=== PATIENT | male | born 1960 | race Caucasian/White ===

== ENCOUNTER → 2017-08-06 | Outpatient (CLI) | payer OTHER ==
--- NOTE | 2017-08-06 18:21 | Diagnostic Imaging Report ---
INDICATION: Left ankle swelling. AP, oblique, and lateral views of the left ankle are obtained. FINDINGS: No fracture or acute bony abnormality is seen. IMPRESSION: Negative left ankle. Dictated by: Dictated on workstation # [id number]
== END ==
LOC: RAD 17:51
PROVIDERS: ATTEND Nurse Practitioner Family
DX: M25.472 Effusion, left ankle (principal)
CPT/HCPCS: 73610

== ENCOUNTER → 2021-01-13 | Outpatient (CLI) | payer OTHER ==
--- NOTE | 2021-01-13 09:54 | Diagnostic Imaging Report ---
INDICATION: Back pain FINDINGS: Lumbar vertebral statures are normal. The alignment is anatomic. The disc spaces are well-preserved. There is mild endplate osteophytes directed anteriorly. There is mild lower lumbar facet arthrosis greatest at the L5-S1 level. No fracture or bony destructive process. No acute finding. IMPRESSION: Mild degenerative changes aligned anatomically with no acute appearing abnormality. Dictated by: Dictated on workstation # [id number]
== END ==
LOC: RAD 08:51
PROVIDERS: ATTEND Nurse Practitioner Family
DX: M47.816 Spondylosis without myelopathy or radiculopathy, lumbar region (principal)
CPT/HCPCS: 72100

== ENCOUNTER → 2021-11-30 | Outpatient (CLI) | payer OTHER ==
--- NOTE | 2021-11-30 15:53 | Diagnostic Imaging Report ---
INDICATION: Pain of the right elbow with recent exacerbation. COMPARISON: None. FINDINGS: 3 views of the right elbow show no fractures, dislocations, or other acute bony abnormalities identified. Joint spaces are well maintained throughout. The soft tissues appear unremarkable. No radiopaque foreign bodies are identified. IMPRESSION: No acute fractures or dislocations of the right elbow. Dictated by: Dictated on workstation # [id number]
== END ==
LOC: RAD 15:21
PROVIDERS: ATTEND Nurse Practitioner Family
DX: M25.521 Pain in right elbow (principal)
CPT/HCPCS: 73080

== ENCOUNTER → 2022-02-06 | Outpatient (CLI) | payer OTHER ==
--- NOTE | 2022-02-06 15:23 | Diagnostic Imaging Report ---
INDICATION: Chest pain. Dizziness. Fatigue. COMPARISON: None. FINDINGS: Frontal and lateral radiographic views of the chest were obtained and show normal cardiac silhouette and pulmonary vasculature. Lungs appear slightly hyperinflated. There is suggestion of 15 x 9 mm nodular opacity of the left upper lung. Lungs are otherwise clear. There is no large effusion or pneumothorax. Osseous structures show no gross acute abnormalities. IMPRESSION: 1. No evidence of failure or focal infiltrate. 2. Findings suspicious for underlying obstructive pulmonary disease. Clinical correlation is advised. 3. Nodular opacity of the left upper lung field. Correlation with CT chest is recommended. Dictated by: Dictated on workstation # [id number]
[2022-02-06 15:35] LABS: HEMATOCRIT 43 % (40-54); HEMOGLOBIN 14.4 g/dL (13.3-17.7); MEAN CORPUSCULAR HEMOGLOBIN 29 pg (25-34); MEAN CORPUSCULAR HGB CONC 33 g/dL (32-36); MEAN CORPUSCULAR VOLUME 87 fL (80-99); MEAN PLATELET VOLUME 9.6 fL (9.0-12.2); PLATELET COUNT 256 10^3/uL (130-400); WHITE BLOOD COUNT 5.6 10^3/uL (4.3-11.0)
[2022-02-06 15:51] LABS: ALBUMIN 4.3 GM/DL (3.2-4.5); CHLORIDE 106 MMOL/L (98-107); POTASSIUM 4.3 MMOL/L (3.6-5.0); SODIUM 141 MMOL/L (135-145)
[2022-02-06 15:52] LABS: CALCIUM 9.3 MG/DL (8.5-10.1)
[2022-02-06 15:53] LABS: GLUCOSE 89 MG/DL (70-105); TOTAL PROTEIN 7.1 GM/DL (6.4-8.2)
[2022-02-06 15:54] LABS: CARBON DIOXIDE 24 MMOL/L (21-32)
[2022-02-06 15:55] LABS: BILIRUBIN,TOTAL 0.7 MG/DL (0.1-1.0)
[2022-02-06 15:57] LABS: ALKALINE PHOSPHATASE 65 U/L (40-136); CREATININE SERUM 1.17 MG/DL (0.60-1.30); GFR ESTIMATED 70
[2022-02-06 15:58] LABS: BUN/CREATININE RATIO 11
[2022-02-06 16:00] LABS: ALANINE AMINOTRANSFERASE 20 U/L (0-55); CREATINE KINASE 159 U/L (30-200)
== END ==
LOC: CARD 14:53
PROVIDERS: ATTEND Nurse Practitioner Family
DX: R91.8 Other nonspecific abnormal finding of lung field (principal); R07.9 Chest pain, unspecified; R42 Dizziness and giddiness; R53.83 Other fatigue; Z20.822 Contact with and (suspected) exposure to COVID-19
CPT/HCPCS: 36415; 71046; 80053; 82550; 84484; 85027; 85379; 93005

== ENCOUNTER → 2022-02-13 | Outpatient (CLI) | payer OTHER ==
--- NOTE | 2022-02-13 18:08 | Diagnostic Imaging Report ---
EXAMINATION: CT chest without contrast. TECHNIQUE: Multiple contiguous axial images were obtained through the chest without the use of intravenous contrast. All CT scans use one or more of the following dose optimizing techniques: automated exposure control, MA and/or KvP adjustment based on patient size and exam type or iterative reconstruction. HISTORY: Abnormal chest radiograph, chest pain. COMPARISON: None available. FINDINGS: There is no edema or pneumonia. No pleural effusion. No pneumothorax. There are mild centrilobular groundglass nodules in the right lower lobe. A radiographic abnormality is a calcified pleural plaque in the left upper zone. There are right-sided calcified pleural plaques, as well. There is no axillary or supraclavicular lymphadenopathy. There is no mediastinal lymphadenopathy. Heart size is normal. There are mild coronary artery calcifications. No pericardial effusion. Aorta is normal in caliber. Limited views of the upper abdomen are unremarkable. There are no suspicious osseus lesions. IMPRESSION: 1. Bilateral calcified pleural plaques responsible for the radiographic abnormality suggestive of a prior asbestos exposure. 2. Mild centrilobular groundglass nodules in the right lower lobe in keeping with a mild endobronchial infection or aspiration. Dictated by: Dictated on workstation # [id number]
== END ==
LOC: RAD 17:40
PROVIDERS: ATTEND Nurse Practitioner Family
DX: J92.9 Pleural plaque without asbestos (principal); R91.8 Other nonspecific abnormal finding of lung field
CPT/HCPCS: 71250

== ENCOUNTER → 2022-06-18 | Outpatient (CLI) | payer OTHER ==
--- NOTE | 2022-06-18 19:04 | Diagnostic Imaging Report ---
INDICATION: Neck pain. FINDINGS: There are degenerative changes to the discs, endplates and facets most severe at the C5-C6 level with some posterior osteophytosis. There is mid to lower cervical sclerotic facet arthrosis also degenerative. No cervical fracture or bony destruction. IMPRESSION: Spondylosis most severe at C5-C6. Multilevel degenerative facet arthrosis. No acute appearing abnormality. Dictated by: Dictated on workstation # [id number]
== END ==
LOC: RAD 13:22
PROVIDERS: ATTEND Nurse Practitioner Family
DX: M47.812 Spondylosis without myelopathy or radiculopathy, cervical region (principal)
CPT/HCPCS: 72040

== ENCOUNTER 2022-10-22 09:55 | Emergency (ER) | payer OTHER ==
[~2022-10-22] VITALS: Ht 182.8 cm; Wt 69.8 kg
--- NOTE | 2022-10-22 10:07 | ED Cardiac General ---
History of Present Illness General Stated Complaint: ABNORMAL EKG Source: patient Exam Limitations: no limitations History of Present Illness Date Seen by Provider: Oct 22, 2022 Time Seen by Provider: 10:06 Initial Comments 61-year-old male presents to the emergency department today from the [facility] clinic for reported abnormal EKG. He states he has had body aches for the last 2 or 3 days. He has a chronic neck issue then has been diagnosed with bulging disks. He actually has an MRI on Saturday at [place] for further evaluation of this. He states recently he began having tingling in his bilateral fingers. He also endorses some subjective weakness in his right arm over the last month or so since all of his neck issues are started. He denies any fevers or chills. No chest pain or shortness of breath. He has had a mild nonproductive cough. He had an EKG at the [facility] clinic which they reported as abnormal. He also had a negative COVID and flu test there. All other systems reviewed and negative except documented per HPI. Voice recognition software was used to help create this chart Allergies and Home Medications Allergies Coded Allergies: No Known Drug Allergies (Unverified , 10/22/22) Patient Home Medication List Home Medication List Reviewed: Yes Review of Systems Review of Systems Constitutional: see HPI Past Jlegfaw-Dgssou-Fsllnr Hx Patient Social History Tobacco Use?: No Use of E-Cig and/or Vaping dev: No Substance use?: No Alcohol Use?: No Family Medical History Reviewed Nursing Family Hx No Pertinent Family Hx Physical Exam Vital Signs Capillary Refill : Height, Weight, BMI Height: '" Weight: lbs. oz. kg; BMI Method: General Appearance: No Apparent Distress, WD/WN HEENT: Normal ENT Inspection, Pharynx Normal Neck: Normal Inspection, Supple Respiratory: Chest Non Tender, Lungs Clear, Normal Breath Sounds, No Accessory Muscle Use, No Respiratory Distress Cardiovascular: Regular Rate, Rhythm, No Murmur, Normal Peripheral Pulses Gastrointestinal: Normal Bowel Sounds, No Organomegaly, Non Tender, Soft Extremity: Normal Capillary Refill, Normal Inspection, Normal Range of Motion, Non Tender, No Calf Tenderness, No Pedal Edema Neurologic/Psychiatric: Alert, Oriented x3 Skin: Normal Color, Warm/Dry Progress/Results/Core Measures Comment I reviewed [facility] EKG that shows normal sinus rhythm with a rate of 60. Normal intervals. Normal axis. Slight early repolarization abnormality in leads II and aVF. No ST or T wave abnormalities otherwise. No ectopy. No STEMI. Her EKG here shows sinus rhythm of 60 bpm. Normal intervals. Normal axis. No ST or T wave abnormality. No ectopy. No STEMI. Departure Communication (Admissions) Patient is hemodynamically stable. He is not having any cardiac symptoms at home. His EKG is completely normal on my review. His main concern is body aches that has been having for the last 2 or 3 days. He has normal vital signs and a normal exam. He is nontoxic and afebrile. Is likely the start of a viral syndrome. COVID and flu testing were negative in the clinic. Will be discharged home in stable condition with supportive care and close follow-up. Impression Primary Impression: Body aches Disposition: HOME, SELF-CARE Condition: Stable Departure-Patient Inst. Referrals: TREVIN CONSTANTINO MD (PCP/Family) Primary Care Physician Add. Discharge Instructions: You are seen in the emergency department today for body aches and reported abnormal EKG. As discussed EKG is normal on my interpretation. As far as the body aches ago, your COVID and flu testing were negative at [facility]. I think you may be starting to come down with a viral illness. This may include nausea, diarrhea or vomiting. This may also include upper respiratory type symptoms such as cough, chills and fevers. Treatment would be conservative with increased fluids amounts of rest. Return to the emergency department for any severe concerns or if you develop any chest pain or your symptoms change in any way concerning to you. Follow with your primary doctor for any nonemergent needs MIGUEL SHETH DO Oct 22, 2022 10:06
[2022-10-22 10:30] VITALS: BP 127/81
== END 2022-10-22 10:30 | disposition home or self-care (01) ==
LOC: EDUNIT# 09:55 → ER 09:58
DX: M79.10 Myalgia, unspecified site (principal)
CPT/HCPCS: 93005; 99285

== ENCOUNTER 2023-01-03 03:31 | Emergency (ER) | payer OTHER ==
[~2023-01-03] VITALS: Ht 182.9 cm; Wt 68.0 kg
--- NOTE | 2023-01-03 03:46 | ED Lower Extremity ---
General Chief Complaint: Lower Extremity Stated Complaint: RIGHT LEG PAIN Source: patient (SON MORRISON DO) History of Present Illness Date Seen by Provider: Jan 03, 2023 Time Seen by Provider: 03:38 Initial Comments PT ARRIVES VIA POV FROM HOME WITH PT IS WALKING WITH A WALKER ( STATES HE HAS NEVER HAD TO USE ONE IN HIS LIFE--WAS HIS 'S FROM KNEE REPLACEMENT SURGERY) PT STATES SINCE Saturday01/01/23, HE HAS BEEN HAVING PAIN IN HIS ENTIRE RIGHT LEG--STARTING AT HIS LOW BACK--MORE ON THE RIGHT SIDE, AND DOWN HIS RIGHT LEG FROM HIP TO FOOT. NO NUMBNESS, BUT HAS OCCASIONAL SLIGHT TINGLING TO LATERAL ASPECT OF RIGHT THIGH HURTS TO MOVE IN ANY DIRECTION OR BEND OVER OR TO RAISE HIS RIGHT LEG. NO SWELLING OR DISCOLORATION OR TEMPERATURE CHANGE TO HIS LEG NO INJURY OR UNUSUAL ACTIVITY. PT WORKS AT A [employer]. NO HEAVY LIFTING OR UNUSUAL ACTIVITY. DOES TO ALOT OF BENDING OVER AND TWISTING, ETC. PT WORKED ALL DAY ON MONDAY 01/01 AND TUESDAY 01/02 HE HAS NOT HAD THIS PROBLEM BEFORE NO PROBLEMS URINATING OR WITH BM'S URINE IS NORMAL COLOR HE WENT TO URGENT CARE AT 1800 FOR THIS PROBLEM. HE STATES THEY DID AN EKG, NO OTHER TESTS WERE DONE, AND WAS TOLD TO TAKE TYLENOL AND IBUPROFEN HE HAS TAKE ONE DOSE OF IBUPROFEN AT 0200 WITHOUT RELIEF. STATES HIS ONLY MEDICAL PROBLEM IS HIGH CHOLESTEROL HE DENIES SMOKING OR VAPING, OCCASIONAL ETOH USE, AND DENIES DRUG USE. HIS ONLY SURGERY IS APPENDECTOMY PCP; DR. CASON (SON MORRISON ) Allergies and Home Medications Allergies Coded Allergies: No Known Drug Allergies (Unverified , 10/22/22) Patient Home Medication List Home Medication List Reviewed: Yes (SON MORRISON ) Cyclobenzaprine HCl (Cyclobenzaprine HCl) 10 Mg Tablet, 10 MG PO Q8H PRN for SPASMS Prescribed by: LUBNA SULTANA on 01/03/23652 Naproxen (Naprosyn) 500 Mg Tablet, 500 MG PO BID Prescribed by: LUBNA SULTANA on 01/03/23652 Review of Systems Constitutional: no symptoms reported Respiratory: no symptoms reported; No short of breath Cardiovascular: no symptoms reported; No chest pain, No edema Gastrointestinal: no symptoms reported Genitourinary: no symptoms reported Musculoskeletal: see HPI Skin: no symptoms reported Psychiatric/Neurological: See HPI (SON MORRISON Cindy SCHILLING) Past Txxgeyd-Jilplr-Rhrpay Hx Patient Social History Tobacco Use?: No Substance use?: No Alcohol Use?: Yes Alcohol Frequency: Once in a while (SON MORRISON Cindy SCHILLING) Past Medical History Surgeries: Yes Appendectomy Respiratory: No Cardiac: Yes High Cholesterol Neurological: No Genitourinary: No Gastrointestinal: No Musculoskeletal: No Endocrine: No HEENT: No Cancer: No Psychosocial: No Integumentary: No Blood Disorders: No (SON MORRISON Cindy SCHILLING) Family Medical History No Pertinent Family Hx (SON MORRISON ) Physical Exam Vital Signs Vital Signs - First Documented 01/03/23 03:37 Temp 36.9 Pulse 59 Resp 18 B/P (MAP) 118/81 (93) Pulse Ox 98 O2 Delivery Room Air (LUBNA SULTANA MD) Vital Signs Capillary Refill : (SON MORRISON Cindy SCHILLING) Height, Weight, BMI Height: '" Weight: lbs. oz. kg; 20.00 BMI Method: General Appearance: WD/WN, no apparent distress, thin Neck: normal inspection Cardiovascular: normal peripheral pulses, regular rate, rhythm, no murmur Respiratory: normal breath sounds Gastrointestinal: non tender Back: other (MID AND LOWER LUMBAR TENDERNESS, WITH MARKED TENDERNESS OVER RIGHT SI JOINT--DRAMATICALLY REPRODUCES PAIN . ) Hips: right hip other (SLIGHT TENDERNESS TO RIGHT POSTERIOR HIP AREA, PAIN WITH MOVEMENT OF HIP. ) Legs: right leg non-tender, right leg other (PAIN WITH MINIMAL RIGHT LEG RAISING) Knees: right knee non-tender Ankles: right ankle non-tender Feet: right foot non-tender Neurologic/Tendon: normal sensation, normal motor functions, normal tendon functions, other (DTR'S +2/4 BILATERALLY. PEDAL PULSES +2/4 BILATERALLY; + STRAIGHT LEG RAISING AT LESS THAN 30 DEGREES ON THE RIGHT, WITH PT IS SEMI- RECLINED POSITION. 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 (SON MORRISON DO) Progress/Results/Core Measures Results/Orders Lab Results Laboratory Tests Test 01/03/23 03:43 Range/Units White Blood Count 5.7 4.3-11.0 10^3/uL Red Blood Count 4.79 4.30-5.52 10^6/uL Hemoglobin 14.2 13.3-17.7 g/dL Hematocrit 43 40-54 % Mean Corpuscular Volume 89 80-99 fL Mean Corpuscular Hemoglobin 30 25-34 pg Mean Corpuscular Hemoglobin Concent 33 32-36 g/dL Red Cell Distribution Width 12.3 10.0-14.5 % Platelet Count 248 130-400 10^3/uL Mean Platelet Volume 9.4 9.0-12.2 fL Immature Granulocyte % (Auto) 0 % Neutrophils (%) (Auto) 57 42-75 % Lymphocytes (%) (Auto) 29 12-44 % Monocytes (%) (Auto) 10 0-12 % Eosinophils (%) (Auto) 3 0-10 % Basophils (%) (Auto) 1 0-10 % Neutrophils # (Auto) 3.2 1.8-7.8 10^3/uL Lymphocytes # (Auto) 1.7 1.0-4.0 10^3/uL Monocytes # (Auto) 0.6 0.0-1.0 10^3/uL Eosinophils # (Auto) 0.2 0.0-0.3 10^3/uL Basophils # (Auto) 0.1 0.0-0.1 10^3/uL Immature Granulocyte # (Auto) 0.0 0.0-0.1 10^3/uL Erythrocyte Sedimentation Rate 5 0-30 MM/HR Prothrombin Time 12.8 12.2-14.7 SEC INR Comment 0.9 0.8-1.4 Activated Partial Thromboplast Time 35 24-35 SEC D-Dimer < 0.27 0.00-0.49 UG/ML Sodium Level 141 135-145 MMOL/L Potassium Level 4.1 3.6-5.0 MMOL/L Chloride Level 107 98-107 MMOL/L Carbon Dioxide Level 25 21-32 MMOL/L Anion Gap 9 5-14 MMOL/L Blood Urea Nitrogen 16 7-18 MG/DL Creatinine 1.13 0.60-1.30 MG/DL Estimat Glomerular Filtration Rate 73 BUN/Creatinine Ratio 14 Glucose Level 100 70-105 MG/DL Calcium Level 9.1 8.5-10.1 MG/DL Corrected Calcium 9.1 8.5-10.1 MG/DL Magnesium Level 1.9 1.6-2.4 MG/DL Total Bilirubin 0.5 0.1-1.0 MG/DL Aspartate Amino Transf (AST/SGOT) 24 5-34 U/L Alanine Aminotransferase (ALT/SGPT) 18 0-55 U/L Alkaline Phosphatase 64 40-136 U/L C-Reactive Protein High Sensitivity 0.04 0.00-0.50 MG/DL B-Type Natriuretic Peptide 63.1 <100.0 PG/ML Total Protein 6.5 6.4-8.2 GM/DL Albumin 4.0 3.2-4.5 GM/DL (LUBNA SULTANA MD) Medications Given in ED Current Medications Medications Dose Ordered Sig/Dimple Route Start Time Stop Time Status Last Admin Dose Admin Ketorolac Tromethamine 60 mg ONCE ONCE IM 01/03/23 04:00 01/03/23 04:01 DC 01/03/23 04:56 60 MG Orphenadrine Citrate 60 mg ONCE ONCE IM 01/03/23 04:00 01/03/23 04:01 DC 01/03/23 04:56 60 MG (LUBNA SULTANA MD) Vital Signs/I&O 01/03/23 03:37 Temp 36.9 Pulse 59 Resp 18 B/P (MAP) 118/81 (93) Pulse Ox 98 O2 Delivery Room Air (LUBNA SULTANA MD) Progress Progress Note : Progress Note GIVEN: -TORADOL -NORFLEX LABS INCLUDING CBC, CMP, BNP, D-DIMER, SED RATE, CRP PT/PTT ORDERED AND ALL ARE NORMAL. CT OF LUMBAR SPINE AND RIGHT HIP AND PELVIS ORDERED MARKED DELAY IN OBTAINING CT RESULTS. 0543--CALLED AUTOMOTIVE TECHNICIAN INSTRUCTOR REGARDING A RADIOLOGIST REPORT ON CT SCANS, IT HAS NOT BEEN ASSIGNED TO A RADIOLOGIST YET. SHE WILL CONTACT [facility] REGARDING THIS DELAY 0550--HAVE BEEN INFORMED THAT IT MAY BE ANOTHER 45 MINUTES TO AN HOUR BEFORE IT IS ASSIGNED TO A [facility] RADIOLOGIST. PAIN IS IMPROVED WITH THE ABOVE MEDICATIONS DISCUSSED ALL OTHER TEST RESULTS, AND ANTICIPATED COURSE IF THE DIAGNOSIS IS SCIATICA, NEED FOR FOLLOW UP AND RETURN PRECAUTIONS. 0600--CARE TURNED OVER TO DR. SULTANA, CT REPORTS PENDING AT THIS TIME. (SON MORRISON DO) Diagnostic Imaging Diagonstic Imaging: CT Comments [facility] [place] NAME: DORIE MUNIZ [facility] REC#: [id number] PT STATUS: REG ER : 1960 PHYSICIAN: SON MORRISON DO ADMIT DATE: 01/03/23/ER Draft Date of Exam:01/03/23 CT EXTREMITY LOWER RIGHT WO PROCEDURE: CT right lower extremity without contrast. TECHNIQUE: Axially acquired CT was obtained through the right lower extremity without intravenous contrast. Coronal and sagittal reformations were also performed. Auto Exposure Controls were utilized during the CT exam to meet ALARA standards for radiation dose reduction. INDICATION: Right hip to ankle pain. COMPARISON: None. FINDINGS: Mild degenerative changes in the right hip. No fracture or malalignment. Partially visualized right hydrocele. No acute findings in the visualized portions of the pelvis. No evidence of a soft tissue mass, superficial fluid collection or contusion. IMPRESSION: No acute CT findings in the right hip. Mild degenerative changes. Dictated on workstation # [id number] Dict: 01/03/2333 Trans: 01/03/23 0638 [facility] [id number] Interpreted by: KATHARINA MC MD Electronically signed by: Diagonstic Imaging: CT Comments [facility] [place] [place] NAME: DORIE MUNIZ [facility] REC#: [id number] PT STATUS: REG ER : 1960 PHYSICIAN: SON MORRISON DO ADMIT DATE: 01/03/23/ER Draft Date of Exam:01/03/23 CT LUMBAR SPINE WO PROCEDURE: CT lumbar spine without contrast. TECHNIQUE: Multiple contiguous axial images were obtained through the lumbar spine without the use of intravenous contrast. Sagittal and coronal reformations were then performed. Auto Exposure Controls were utilized during the CT exam to meet ALARA standards for radiation dose reduction. INDICATION: Low back pain radiating down right lower extremity. COMPARISON: None. FINDINGS: Normal alignment. Vertebral body heights preserved. No fractures. Mild to moderate diffuse spondylotic changes. No CT evidence high-grade spinal canal stenosis. Visualized pelvis and paravertebral soft tissues demonstrate no acute findings. IMPRESSION: Mild to moderate spondylotic changes in the lumbar spine. No acute CT findings. Dictated on workstation # [id number] Dict: 01/03/2332 Trans: 01/03/23 0635 [facility] [id number] Interpreted by: KATHARINA MC MD Electronically signed by: (LUBNA SULTANA MD) Departure Impression Primary Impression: Sciatica of right side Disposition: 01 HOME, SELF-CARE Condition: Improved Departure-Patient Inst. Decision time for Depature: 06:49 (LUNBA SULTANA MD) Referrals: TREVIN CASON MD (PCP/Family) Primary Care Physician Patient Instructions: Sciatica ED Add. Discharge Instructions: You can alternate Heat and Ice to the affected area of your low back and hip. You can also use over the counter DIclofenac gel, Biofreeze or IcyHot to the area for pain. Tale the Flexeril, 1 tablet every 8 hours as needed for spasm. Do not drive and take this medication, it can make you sleepy. Naproxen 500mg tablet twice a day (WITH FOOD) for the next 5 days, for pain. Always take this medication with food. If you have any worsening pain, numbness or weakness in your leg, please return to the Emergency Department for re-evaluation. Follow up with Dr Cason in a week. Scripts Naproxen (Naprosyn) 500 Mg Tablet 500 MG PO BID, #30 TAB 0 Refills Prov: LUBNA SULTANA MD 01/03/23 Cyclobenzaprine HCl (Cyclobenzaprine HCl) 10 Mg Tablet 10 MG PO Q8H PRN for SPASMS, #20 TAB 0 Refills Prov: LUBNA SULTANA MD 01/03/23 Work/School Note: Work Release Form Date Seen in the Emergency Department: Jan 03, 2023 Return to Work: Jan 07, 2023 Copy Copies To 1: TREVIN CASON MD, LISA K DO Jan 03, 2023 03:46 LUBNA SULTANA MD Jan 03, 2023 06:53
[2023-01-03 03:56] LABS: BASOPHILS # (AUTO) 0.1 10^3/uL (0.0-0.1); BASOPHILS % (AUTO) 1 % (0-10); EOSINOPHILS # (AUTO) 0.2 10^3/uL (0.0-0.3); EOSINOPHILS % (AUTO) 3 % (0-10); HEMATOCRIT 43 % (40-54); HEMOGLOBIN 14.2 g/dL (13.3-17.7); LYMPHOCYTES # (AUTO) 1.7 10^3/uL (1.0-4.0); LYMPHOCYTES % (AUTO) 29 % (12-44); MEAN CORPUSCULAR HEMOGLOBIN 30 pg (25-34); MEAN CORPUSCULAR HGB CONC 33 g/dL (32-36); MEAN CORPUSCULAR VOLUME 89 fL (80-99); MEAN PLATELET VOLUME 9.4 fL (9.0-12.2); MONOCYTES # (AUTO) 0.6 10^3/uL (0.0-1.0); MONOCYTES % (AUTO) 10 % (0-12); NEUTROPHILS # (AUTO) 3.2 10^3/uL (1.8-7.8); NEUTROPHILS % (AUTO) 57 % (42-75); PLATELET COUNT 248 10^3/uL (130-400); WHITE BLOOD COUNT 5.7 10^3/uL (4.3-11.0)
[2023-01-03] MEDS ORDERED: ORPHENADRINE 60 MG/2 ML (NORFLEX) AMP (ED ONLY) IM ONE (04:00)
[2023-01-03] MEDS ORDERED: KETOROLAC 60 MG/2 ML VIAL IM ONE (04:00)
[2023-01-03 04:04] LABS: CALCIUM 9.1 MG/DL (8.5-10.1); POTASSIUM 4.1 MMOL/L (3.6-5.0)
[2023-01-03 04:06] LABS: TOTAL PROTEIN 6.5 GM/DL (6.4-8.2)
[2023-01-03 04:07] LABS: BILIRUBIN,TOTAL 0.5 MG/DL (0.1-1.0)
[2023-01-03 04:10] LABS: CREATININE SERUM 1.13 MG/DL (0.60-1.30)
[2023-01-03 04:12] LABS: MAGNESIUM 1.9 MG/DL (1.6-2.4)
[2023-01-03 04:14] LABS: ERYTHROCYTE SEDIMENTATION RATE 5 MM/HR (0-30)
[2023-01-03 04:15] LABS: INR 0.9 (0.8-1.4); PROTHROMBIN TIME PATIENT 12.8 SEC (12.2-14.7)
[2023-01-03 04:16] LABS: PARTIAL THROMBOPLASTIN TIME 35 SEC (24-35)
[2023-01-03 04:34] LABS: FIBRIN DEGRADATION PRODUCTS < 0.27 UG/ML (0.00-0.49)
--- NOTE | 2023-01-03 06:35 | Diagnostic Imaging Report ---
PROCEDURE: CT lumbar spine without contrast. TECHNIQUE: Multiple contiguous axial images were obtained through the lumbar spine without the use of intravenous contrast. Sagittal and coronal reformations were then performed. Auto Exposure Controls were utilized during the CT exam to meet ALARA standards for radiation dose reduction. INDICATION: Low back pain radiating down right lower extremity. COMPARISON: None. FINDINGS: Normal alignment. Vertebral body heights preserved. No fractures. Mild to moderate diffuse spondylotic changes. No CT evidence high-grade spinal canal stenosis. Visualized pelvis and paravertebral soft tissues demonstrate no acute findings. IMPRESSION: Mild to moderate spondylotic changes in the lumbar spine. No acute CT findings. Dictated by: Dictated on workstation # [id number]
--- NOTE | 2023-01-03 06:39 | Diagnostic Imaging Report ---
PROCEDURE: CT right lower extremity without contrast. TECHNIQUE: Axially acquired CT was obtained through the right lower extremity without intravenous contrast. Coronal and sagittal reformations were also performed. Auto Exposure Controls were utilized during the CT exam to meet ALARA standards for radiation dose reduction. INDICATION: Right hip to ankle pain. COMPARISON: None. FINDINGS: Mild degenerative changes in the right hip. No fracture or malalignment. Partially visualized right hydrocele. No acute findings in the visualized portions of the pelvis. No evidence of a soft tissue mass, superficial fluid collection or contusion. IMPRESSION: No acute CT findings in the right hip. Mild degenerative changes. Dictated by: Dictated on workstation # [id number]
[2023-01-03] MEDS ORDERED: NAPR-1071 PO (06:53)
[2023-01-03] MEDS ORDERED: CYCL10TA25 PO (06:53)
[2023-01-03 07:05] VITALS: BP 118/81
== END 2023-01-03 07:08 | disposition home or self-care (01) ==
LOC: EDUNIT# 03:31 → ER 03:33
DX: M54.41 Lumbago with sciatica, right side (principal); Z28.310 Unvaccinated for COVID-19
CPT/HCPCS: 36415; 72131; 73700; 80053; 83735; 83880; 85025; 85379; 85610; 85652; 85730; 86141; 93041